=== PATIENT | male | born 2000 | race Two or more races ===

== ENCOUNTER 2024-09-25 08:02 | Emergency (ER) | payer OTHER ==
[~2024-09-25] VITALS: Ht 175.3 cm; Wt 72.7 kg
--- NOTE | 2024-09-25 08:22 | ECG ---
[facility] Test Date: 2024-09-25 Test Time: 08:15:56 Pat Name: SHEY SOTO Department: ER Room: Gender: M Return Clerk: GP : 2000 Requested By: HASMUKH LANDERS Order Number: [id number] Reading MD: Jose Juan Dumas Measurements Intervals [place] Rate: 114 P: 76 CT: 126 QRS: 83 QRSD: 94 T: 46 QT: 327 QTc: 451 Interpretive Statements Sinus tachycardia RSR' in V1 or V2, right VCD or RVH Probable inferior infarct, old Electronically Signed On 10-01-2024 17:28:08 PDT by Jose Juan Dumas Please click the below link to view image of tracing.
[2024-09-25] MEDS: SODIUM CHLORIDE 0.9% 1,000 ML IV ONE ×2 (09:26)
[2024-09-25] MEDS: LORazepam 2MG/ML-1ML VIAL IV ONE (09:28)
[2024-09-25] MEDS: ONDANSETRON HCL 4 MG/2 ML VIAL IV ONE (09:30)
[2024-09-25 09:45] LABS: Hematocrit 48.2 % (41.0-53.0); Hemoglobin 16.5 g/dL (13.5-17.5); Mean Corpuscular Hemoglobin 29.3 pg (28.0-32.0); Mean Corpuscular Volume 85.5 fL (80.0-100.0)
[2024-09-25 09:50] LABS: Chloride 103 mmol/L (98-107); Sodium 139 mmol/L (136-145)
[2024-09-25 09:51] LABS: Anion Gap 13 (5-15); Carbon Dioxide 23 mmol/L (20-31)
[2024-09-25 09:52] LABS: Calcium 9.3 mg/dL (8.7-10.4); Potassium 3.3 mmol/L (3.5-5.1)
[2024-09-25 09:57] LABS: BUN/Creatinine Ratio 14.8 (10.0-20.0); Blood Urea Nitrogen 19 mg/dL (9-23); Glucose 142 mg/dL (74-106)
--- NOTE | 2024-09-25 10:12 | ED.PDOC ---
History of Present Illness HPI Comments 24-year-old male came to the ER stating that he has been having muscle cramps of the right hand which started at two in the morning. Prior to the muscle cramps he has been having nausea vomiting which started midnight continue throughout the night. Along with the cramps his states that he has been having body pain all over. Heart rate was 114 on arrival. Denies any past medical surgical history. Chief Complaint: Nausea/Vomiting Time Seen by MD: 08:28 Reviewed Notes: Nurses Notes, Medications, Allergies Allergies: Coded Allergies: NO KNOWN ALLERGIES (Unverified , 09/25/24) Information Source: Patient Mode of Arrival: Ambulatory Severity: Moderate Timing: Hours Duration: Since onset Past Medical History PAST MEDICAL HISTORY: Denies Surgical History: Denies all surgeries Social History Smoker: Non-Smoker Alcohol: Denies ETOH Use Drugs: Denies Drug Use Constitutional: denies: chills, diaphoresis, fatigue, fever, malaise, sweats, weakness, others EENTM: denies: blurred vision, double vision, ear bleeding, ear discharge, ear drainage, ear pain, ear ringing, eye pain, eye redness, hearing loss, mouth pain, mouth swelling, nasal discharge, nose bleeding, nose congestion, nose pain, photophobia, tearing, throat pain, throat swelling, voice changes, others Respiratory: denies: cough, hemoptysis, orthopnea, SOB at rest, shortness of breath, SOB with excertion, stridor, wheezing, others Cardiovascular: denies: chest pain, dizzy spells, diaphoresis, Dyspnea on exertion, edema, irregular heart beat, left arm pain, lightheadedness, pa lpitations, PND, syncope, others Gastrointestinal: reports: nausea, vomiting; denies: abdomen distended, abdominal pain, blood streaked bowels, constipated, diarrhea, dysphagia, difficulty swallowing, hematemesis, melena, poor appetite, poor fluid intake, rectal bleeding, rectal pain, others Genitourinary: denies: burning, dysuria, flank pain, frequency, hematuria, incontinence, penile discharge, penile sore, pain, testicle pain, testicle swelling, urgency, others Neurological: denies: dizziness, fainting, headache, left sided numbness, left sided weakness, numbness, paresthesia, pre-existing deficit, right sided numbness, right sided weakness, seizure, speech problems, tingling, tremors, weakness, others Musculoskeletal: reports: others (Right hand spasm); denies: back pain, gout, joint pain, joint swelling, muscle pain, muscle stiffness, neck pain Integumetry: denies: bruises, change in color, change in hair/nails, dryness, laceration, lesions, lumps, rash, wounds, others Allergic/Immunocompromised: denies: Difficulty Healing, Frequent Infections, Hives, Itching, others Hematologic/Lymphatic: denies: anemia, blood clots, easy bleeding, easy bruising, swollen glands, others Endocrine: denies: excessive hunger, excessive sweating, excessive thirst, excessive urination, flushing, intolerance to cold, intolerance to heat, unexplained weight gain, unexplained weight loss, others Psychiatric: denies: anxiety, bipolar disorder, depression, hopeless, panic disorder, schizophrenia, sleepless, suicidal, others Physical Exam General Appearance: Moderate Distress HEENT: Normal ENT Inspection, Pharynx Normal, TMs Normal Neck: Full Range of Motion, Non-Tender, Normal, Normal Inspection Respiratory: Chest Non-Tender, Lungs Clear, No Accessory Muscle Use, No Respiratory Distress, Normal Breath Sounds Cardiovascular: No Edema, No JVD, No Murmur, No Gallop, Normal Peripheral Pulses, Regular Rate/Rhythm Breast Exam: Deferred Gastrointestinal: No Organomegaly, Non Tender, No Pulsatile Mass, Normal Bowel Sounds, Soft Genitalia: Deferred Pelvic: Deferred Rectal: Deferred Extremities: No calf tenderness, Normal capillary refill, Normal range of motion, Non-tender, No pedal edema, Other (Right hand spasm able to close) Musculoskeletal : Apperance: Normal Neurologic: Alert, golf course manager II-XII nml as Tested, No Motor Deficits, Normal Affect, Normal Mood, No Sensory Deficits Cerebellar Function: NOT DONE Reflexes: NOT DONE Skin: Dry, Normal Color, Warm Peripheral Pulses: 3+ Radial (R), 3+ Radial (L) Lymphatic: No Adenopathy Was a procedure done? Was a procedure done?: No Differential Dx Considerations may include: Muscle spasm Electrolyte imbalance X-Ray, Labs, Meds, VS Vital Signs Date Time Temp Pulse Resp B/P (MAP) Pulse Ox O2 Delivery O2 Flow Rate FiO2 09/25/24 09:37 104 18 118/67 (84) 100 09/25/24 09:37 104 18 100 Room Air 09/25/24 08:15 114 09/25/24 08:05 97.9 106 22 106/72 99 97.9 Lab Test 09/25/24 10:30 09/25/24 09:26 Range/Units Lactic Acid Level 1.9 0.4-2.0 mmol/L White Blood Count 14.7 H 4.4-10.8 10^3/uL Red Blood Count 5.64 4.5-5.90 10^6/uL Hemoglobin 16.5 13.5-17.5 g/dL Hematocrit 48.2 41.0-53.0 % Mean Corpuscular Volume 85.5 80.0-100.0 fL Mean Corpuscular Hemoglobin 29.3 28.0-32.0 pg Mean Corpuscular Hemoglobin Concent 34.2 32.0-36.0 g/dL Red Cell Distribution Width 13.7 11.8-14.3 % Platelet Count 233 140-450 10^3/uL Mean Platelet Volume 7.8 6.9-10.8 fL Neutrophils (%) (Auto) 37.0-80.0 % Lymphocytes (%) (Auto) 10.0-50.0 % Monocytes (%) (Auto) 0.0-12.0 % Basophils (%) (Auto) 0.0-2.0 % Neutrophils # (Auto) 1.6-8.6 10 ^3/uL Lymphocytes # (Auto) 0.4-5.4 10 ^3/uL Monocytes # (Auto) 0-1.3 10 ^3/uL Differential Total Cells Counted Pending Neutrophils % (Manual) Pending Band Neutrophils % (Manual) Pending Lymphocytes % (Manual) Pending Monocytes % (Manual) Pending Eosinophils % (Manual) Pending Basophils % (Manual) Pending Metamyelocytes % (manual) Pending Myelocytes % (Manual) Pending Promyelocytes % (Manual) Pending Blast Cells % (Manual) Pending Reactive Lymphocytes Pending Platelet Estimate Pending Sodium Level 139 136-145 mmol/L Potassium Level 3.3 L 3.5-5.1 mmol/L Chloride Level 103 98-107 mmol/L Carbon Dioxide Level 23 20-31 mmol/L Anion Gap 13 5-15 Blood Urea Nitrogen 19 9-23 mg/dL Creatinine 1.28 0.700-1.30 mg/dL Glomerular Filtration Rate Calc 80 >90 mL/min BUN/Creatinine Ratio 14.8 10.0-20.0 Serum Glucose 142 H 74-106 mg/dL Calcium Level 9.3 8.7-10.4 mg/dL Current Medications Medications (Trade) Dose Ordered Sig/Ruth Route Start Time Stop Time Status Last Admin Ondansetron HCl (Zofran) 4 mg ONCE ONCE IV 09/25/24 09:00 09/25/24 09:01 DC 09/25/24 09:30 Lorazepam (Ativan Inj) 1 mg ONCE ONCE IV 09/25/24 09:00 09/25/24 09:01 DC 09/25/24 09:28 Sodium Chloride 1,000 ml @ 1,000 mls/hr Q1H ONCE IV 09/25/24 09:00 09/25/24 09:59 DC 09/25/24 09:26 Patient alert. On examination he does have good muscle strength. Vitals stable. Answering questions. Establish intravenous access. Was given fluids. Was given Ativan. Blood sugar elevated. Potassium is low. Was given potassium. WBC elevated. Hemoglobin within normal limits. Was given Zosyn. Was given Flagyl. Reviewed his history. Explained to the patient. Continue monitoring. [place] approved ER visit [id number]. Time of 1ST Reevaluation: 10:09 Reevaluation 1ST: Unchanged Patient Education/Counseling: Diagnosis, Treatment, Prognosis, Need For Follow Up Family Education/Counseling: No Family Present SEPSIS Sepsis Screen Date sepsis recognized/suspect: Sep 25, 2024 Time Sepsis recognized/suspect: 804 Recent Procedure: No On Antibiotic Therapy: No Respiratory Rate >20: No Heart Rate >90: Yes Temp<36 C (96.8 F) or >38.3 C: No SBP <90 or MAP <65 mmHG: No New Acute Mental Status Change: No Is the patient on CPAP, BIPAP,: No Physician Orders Complete Blood Count (09/25/24 08:58) Sodium Chloride 0.9% (09/25/24 09:00) Drug Screen (09/25/24 08:58) Manual Differential (09/25/24 09:26) Blood Culture (09/25/24 10:05) Potassium Effervesent Tab (Klor-Con/Ef) (09/25/24 12:15) Vital Signs Date Time Temp Pulse Resp B/P (MAP) Pulse Ox O2 Delivery O2 Flow Rate FiO2 09/25/24 09:37 104 18 118/67 (84) 100 09/25/24 09:37 104 18 100 Room Air 09/25/24 08:15 114 09/25/24 08:05 97.9 106 22 106/72 99 97.9 Laboratory Tests Test 09/25/24 09:26 09/25/24 10:30 White Blood Count 14.7 10^3/uL (4.4-10.8) H Lactic Acid Level 1.9 mmol/L (0.4-2.0) Medications Medications Dose Ordered Sig/Ruth Route Start Time Stop Time Status Last Admin Dose Admin Lorazepam 1 mg ONCE ONCE IV 09/25/24 09:00 09/25/24 09:01 DC 09/25/24 09:28 Ondansetron HCl 4 mg ONCE ONCE IV 09/25/24 09:00 09/25/24 09:01 DC 09/25/24 09:30 Sodium Chloride 1,000 ml @ 1,000 mls/hr Q1H ONCE IV 09/25/24 09:00 09/25/24 09:59 DC 09/25/24 09:26 Departure 1 Departure Time of Disposition: 10:11 Impression: Primary Impression: Newly diagnosed diabetes Additional Impression: Sepsis, unspecified organism Qualified Codes: A41.9 - Sepsis, unspecified organism Disposition: ADMITTED INPATIENT Admit to: Med Surg Condition: Guarded Critical Care Note Critical Care Time?: No Stability Stability form required: No Heart Score Heart Score: Heart Score Response (Comments) Value History N/A 0 EKG N/A 0 Age N/A 0 Risk Factors N/A 0 Troponin N/A 0 Total 0 HASMUKH LANDERS MD Sep 25, 2024 10:12
[2024-09-25 12:29] LABS: Total Cells Counted 100.0 (100)
[2024-09-25] MEDS: POTASSIUM EFFERVESENT TAB 25 MEQ PO ONE (12:40)
[2024-09-25] MEDS: PIPERACILLIN-TAZOB 3.375GM 100 ML IV ONE (14:08)
[2024-09-25 14:59] LABS: Amphetamine Screen, Urine Neg (NEGATIVE)
[2024-09-25 15:02] LABS: Barbiturate Scree,Urine Neg (NEGATIVE); Benzodiazephine Screen, Urine Neg (NEGATIVE); Cannabinoid Screen, Urine Neg (NEGATIVE); Cocaine Screen, Urine Neg (NEGATIVE); Opiate Scree,Urine Neg (NEGATIVE); Phencyclidine Screen, Urine Neg (NEGATIVE)
[2024-09-25 15:36] VITALS: BP 106/75; PULSE 117; RESP 18; O2SAT 99
[2024-09-25 15:56] VITALS: TEMP 100.7
[2024-09-25] MEDS: ACETAMINOPHEN 325 MG TAB PO ONE (15:56)
== END 2024-09-25 15:56 | disposition short-term general hospital (02) ==
LOC: ER 08:02
DX: A41.9 Sepsis, unspecified organism (principal); E11.9 Type 2 diabetes mellitus without complications; Z79.899 Other long term (current) drug therapy
CPT/HCPCS: 36415; 80048; 80307; 82947; 83605; 85007; 85027; 87040; 93005; 96361; 96365; 96366; 96368; 96375; 99285; J2060; J2405; J2543; J3490; J7030